=== PATIENT | male | born 1955 | race Caucasian/White ===

== ENCOUNTER 2016-12-10 22:31 | Inpatient (IN) | payer OTHER ==
--- NOTE | 2016-12-10 23:26 | C.PDOC ---
History Of Present Illness Patient, with a past medical history of hypertension and hypercholesterolemia, presents to the ED complaining of abdominal pain that started about 6-7 hours prior to arrival. Patient states the pain is sharp and stabbing. Patient denies fever, chest pain, shortness of breath, nausea, vomiting, or diarrhea. Time Seen by Provider: 12/10/16 23:25 Chief Complaint (Nursing): Abdominal Pain History Per: Patient History/Exam Limitations: no limitations Onset/Duration Of Symptoms: Hrs (6-7 hours prior to arrival) Current Symptoms Are (Timing): Still Present Context: Other Severity: Mild Pain Scale Rating Of: 3 Location Of Pain/Discomfort: Diffuse Radiation Of Pain To:: None Quality Of Discomfort: Sharp, Stabbing, "Pain" Exacerbating Factors: None Alleviating Factors: None Last Bowel Movement: Today Recent travel outside of the [place]: No Additional History Per: Patient Past Medical History Reviewed: Historical Data, Nursing Documentation, Vital Signs Vital Signs: Last Vital Signs Temp 97.8 F 12/11/16 08:08 Pulse 96 H 12/11/16 08:08 Resp 20 12/11/16 08:08 BP 122/76 12/11/16 08:08 Pulse Ox 99 12/11/16 21:11 - Medical History PMH: HTN, Hypercholesterolemia - [facility] Procedures CORONAR ARTERIOGR-2 CATH (09/12/14) LEFT HEART CARDIAC CATH (09/12/14) LT HEART ANGIOCARDIOGRAM (09/12/14) VACCINATION NEC (09/12/14) Family History: States: CAD - Social History Hx Tobacco Use: No Hx Alcohol Use: Yes (occassional) Hx Substance Use: No - Immunization History Hx Tetanus Toxoid Vaccination: No Hx Influenza Vaccination: No Hx Pneumococcal Vaccination: No Review Of Systems Constitutional: Negative for: Fever, Chills Cardiovascular: Negative for: Chest Pain Respiratory: Negative for: Shortness of Breath Gastrointestinal: Positive for: Abdominal Pain. Negative for: Nausea, Vomiting , Diarrhea Physical Exam - Physical Exam Appears: Non-toxic, No Acute Distress Skin: Warm, Dry Head: Atraumatic, Normacephalic Eye(s): bilateral: EOMI Oral Mucosa: Moist Neck: Supple Chest: Symmetrical Cardiovascular: Rhythm Regular Respiratory: No Rales, No Rhonchi, No Wheezing Gastrointestinal/Abdominal: Soft, Tenderness (diffuse), No Guarding, No Rebound Back: No CVA Tenderness Extremity: Bilateral: Atraumatic, Normal Color And Temperature Neurological/Psych: Oriented x3 ED Course And Treatment - Laboratory Results Result Diagrams: 12/11/16 00:46 12/11/16 00:46 ECG: Interpreted By Me, Viewed By Me O2 Sat by Pulse Oximetry: 99 (room air) Pulse Ox Interpretation: Normal - CT Scan/US Abdomen/Pelvis CT Other Rad Studies (CT/US): Read By Radiologist (Jf Nuno MD), Radiology Report Reviewed CT/US Interpretation: EXAM: CT Abdomen and Pelvis With Intravenous Contrast. CLINICAL HISTORY: 61 years old, male; Pain; Abdominal pain; Prior surgery; Surgery type: Right kidney removed; Patient. HX: 16; Additional info: Abd pain. TECHNIQUE: Axial computed tomography images of the abdomen and pelvis with intravenous contrast. This CT. exam was performed using one or more of the following dose reduction techniques: automated. exposure control, adjustment of the mA and/or kV according to patient size, and/or use of iterative. reconstruction technique. EXAM DATE/TIME: 12/11/2016 12:30 AM. COMPARISON: No relevant prior studies available. FINDINGS: Lower thorax: No acute findings. ABDOMEN: Liver: Unremarkable. No mass. Gallbladder and bile ducts: Unremarkable. No calcified stones. No ductal dilation. Pancreas: Unremarkable. No mass. No ductal dilation. Spleen: Unremarkable. No splenomegaly. Adrenals: Unremarkable. No mass. Kidneys and ureters: There has been a right nephrectomy. The left kidney appears unremarkable. Stomach and bowel: Colonic diverticula are present although there are no CT findings to suggest. diverticulitis. There is mild dilation of mid small bowel with a maximal diameter of 3 cm. There are air. fluid levels. The distal small bowel and colon are not dilated. There is no volvulus or intussusception. or significant hernia. There is no pneumatosis. Appendix: No findings to suggest acute appendicitis. PELVIS: Bladder: Unremarkable. No mass. Reproductive: Unremarkable as visualized. ABDOMEN and PELVIS: Intraperitoneal space: Unremarkable. No free air. No significant fluid collection. Bones/joints: No acute fracture. No dislocation. Soft tissues: Unremarkable. Vasculature: Unremarkable. No abdominal aortic aneurysm. Lymph nodes: Unremarkable. No enlarged lymph nodes. IMPRESSION: There is mild small bowel dilation suggestive of an ileus versus partial obstruction.Clinical correlation. is advised. Progress Note: Plan: -Abdomen/Pelvis CT. -EKG. -Labs. -Morphine, Pepcid, Zofran, IV fluids Disposition Discussed With Dr.: Lulu Vera Comment: accepted the pt on her service and took over the care at 3:14 AM Doctor Will See Patient In The: Hospital Counseled Patient/Family Regarding: Studies Performed, Diagnosis - Disposition Disposition: HOSPITALIZED Disposition Time: 23:25 Condition: FAIR - POA Present On Arrival: Poor Glycemic Control - Clinical Impression Clinical Impression: Ileus, Abdominal pain, Nausea - Scribe Statement The provider has reviewed the documentation as recorded by the Scribe Kathia Shah Provider Attestation: All medical record entries made by the Scribe were at my direction and personally dictated by me. I have reviewed the chart and agree that the record accurately reflects my personal performance of the history, physical exam, medical decision making, and the department course for this patient. I have also personally directed, reviewed, and agree with the discharge instructions and disposition. Decision To Admit - Pt Status Changed To: Hospital Disposition Of: Inpatient - Admit Certification Admit to Inpatient:: After my assessment, the patient will require hospitalization for at least two midnights. This is because of the severity of symptoms shown, intensity of services needed, and/or the medical risk in this patient being treated as an outpatient. - InPatient: Physician Admission Certification:: After my assessment, the patient will require hospitalization for at least two midnights. This is because of the severity of symptoms shown, intensity of services needed, and/or the medical risk in this patient being treated as an outpatient. - . Bed Request Type: Regular Admitting Physician: Lulu Vera Patient Diagnosis: Abdominal pain, Ileus, Nausea
[2016-12-11] MEDS ORDERED: Sodium Chloride 0.9% 1,000 ML IV ONE (00:29)
[2016-12-11] MEDS ORDERED: Morphine 4 MG/ML VIAL ONE (00:45)
[2016-12-11] MEDS ORDERED: Sodium Chloride 0.9% 1,000 ML ONE (00:46)
[2016-12-11 00:53] LABS: BASO % 0.1 % (0.0-2.0); EOS % 0.3 % (0.0-4.0); HEMATOCRIT 47.2 % (35.0-51.0); LYMPH # 1.2 K/uL (1.0-4.3); LYMPH % 13.9 % (20.0-40.0); MEAN CELL VOLUME 90.3 fL (80.0-94.0); MEAN CORPUSCULAR HEMOGLOBIN 30.4 pg (27.0-31.0); MEAN CORPUSCULAR HGB CONC 33.7 g/dL (33.0-37.0); MEAN PLATELET VOLUME 8.4 fL (7.2-11.7); MONO # 0.6 K/uL (0.0-0.8); MONO % 7.3 % (0.0-10.0); RED CELL DISTRIBUTION WIDTH 12.9 % (11.5-14.5); WHITE BLOOD COUNT 8.6 K/uL (4.8-10.8)
[2016-12-11 01:04] LABS: CHLORIDE 98 mmol/L (98-107)
[2016-12-11 01:05] LABS: POTASSIUM 4.8 mmol/L (3.6-5.2); SODIUM 139 mmol/L (132-148)
[2016-12-11 01:07] LABS: ALB/GLOB RATIO 1.3 (1.0-2.1); ALKALINE PHOSPHATASE 67 U/L (38-126); AST/SGOT 32 U/L (17-59); BILIRUBIN,TOTAL 0.8 mg/dL (0.2-1.3); BLOOD UREA NITROGEN 21 mg/dL (9-20); CARBON DIOXIDE 28 mmol/L (22-30); GFR AFRICAN-AMERICAN > 60; TOTAL PROTEIN 8.6 g/dL (6.3-8.3)
[2016-12-11 01:08] LABS: ALT/SGPT 27 U/L (21-72); CALCIUM 9.8 mg/dl (8.6-10.4); GLUCOSE,RANDOM 126 mg/dL (75-110)
[2016-12-11 01:13] LABS: GRANULAR CAST 5 /lpf (0-1); RBC URINE 2 /hpf (0-3); URINE BILIRUBIN NEGATIVE (NEGATIVE); URINE BLOOD NEGATIVE (NEGATIVE); URINE COLOR Yellow (YELLOW); URINE GLUCOSE (UA) NORMAL (Normal); URINE KETONE 1+ mg/dL (NEGATIVE); URINE LEUKOCYTE ESTERASE NEG Leu/uL (Negative); URINE PROTEIN 1+ mg/dL (NEGATIVE); URINE UROBILINOGEN NORMAL mg/dL (0.2-1.0); WBC URINE 1 /hpf (0-5)
[2016-12-11] MEDS ORDERED: Iodixanol 320 MG/ML 100 ML BOTTLE IV ONE (01:32)
[2016-12-11] MEDS ORDERED: HYDROmorphone 0.5 mg/0.5 ml ISec IVP PRN ×2 (05:00→22:24)
[2016-12-11] MEDS ORDERED: HYDROmorphone 0.5 mg/0.5 ml ISec ONE (05:15)
[2016-12-11 08:09] VITALS: RESP 20
--- NOTE | 2016-12-11 08:17 | CP.PCM.CON ---
<Sergio Teague - Last Filed: 12/11/16 08:35> History of Present Illness - History of Present Illness History of Present Illness: General Surgery Consult: Dr. Fung 61M w/ PMHx of HTN, PAD, presents to the ED w/ complaints of abdominal pain. Patient reports pain began yesterday (12/10) after having had a meal of fried plantains around 1PM. Patient states he experienced generalized abdominal pain and distension. He experienced three bouts of emesis, non-bloody. Patient reports his pain did not improve and around 9 PM decided to come to hospital. Patient states this is the first time he has experienced this type of pain. He reports he is s/p right nephrectomy which was done 10 months ago. Currently patient states his distention has improved and he is no longer experiencing abdominal pain. Patient denies fever/chills, diarrhea, dysuria. Patient states his last BM was yesterday afternoon. He has not passed flatus since then. PMHx: as stated above PSurgHx: right nephrectomy, PCI RCA Allergies: NKDA Review of Systems - Review of Systems Review of Systems: 12 pt ROS carried out, unremarkable; except as stated in HPI Past Patient History - Infectious Disease Hx of Infectious Diseases: None - Past Medical History & Family History Past Medical History?: Yes - Past Social History Smoking Status: Never Smoked - CARDIAC Hx Hypercholesterolemia: Yes Hx Hypertension: Yes - PULMONARY Hx Asthma: No - NEUROLOGICAL Hx Transient Ischemic Attacks (TIA): No - HEENT Hx HEENT Problems: No - RENAL Hx Chronic Kidney Disease: No - ENDOCRINE/METABOLIC Hx Endocrine Disorders: No - HEMATOLOGICAL/ONCOLOGICAL Hx Blood Disorders: No - INTEGUMENTARY Hx Dermatological Problems: No - MUSCULOSKELETAL/RHEUMATOLOGICAL Hx Musculoskeletal Disorders: No Hx Falls: No - GASTROINTESTINAL Hx Gastrointestinal Disorders: No - GENITOURINARY/GYNECOLOGICAL Hx Genitourinary Disorders: No - PSYCHIATRIC Hx Substance Use: No - SURGICAL HISTORY Hx Surgeries: No Other/Comment: Right Kidney Removal January 2016 - ANESTHESIA Hx Anesthesia: Yes Hx Anesthesia Reactions: No Hx Malignant Hyperthermia: No Has any member of the family had a problem w/ anesthesia?: No Meds Allergies/Adverse Reactions: Allergies Allergy/AdvReac Type Severity Reaction Status Date / Time No Known Allergies Allergy Verified 12/10/16 22:56 Physical Exam - Constitutional Appears: No Acute Distress - Head Exam Head Exam: NORMOCEPHALIC - Eye Exam Eye Exam: Normal appearance - ENT Exam ENT Exam: Mucous Membranes Moist - Respiratory Exam Respiratory Exam: NORMAL BREATHING PATTERN - Cardiovascular Exam Cardiovascular Exam: +S1, +S2 - GI/Abdominal Exam GI & Abdominal Exam: Distended, Soft. absent: Firm, Guarding - Neurological Exam Neurological exam: Alert, Oriented x3 - Psychiatric Exam Psychiatric exam: Normal Mood - Skin Skin Exam: Normal Color, Warm Results - Vital Signs Recent Vital Signs: Last Vital Signs Temp 97.8 F 12/11/16 08:08 Pulse 96 H 12/11/16 08:08 Resp 20 12/11/16 08:08 BP 122/76 12/11/16 08:08 Pulse Ox 96 12/11/16 08:08 - Labs Result Diagrams: 12/11/16 00:46 12/11/16 00:46 - Imaging and Cardiology CT scan - abdomen Status: Image reviewed by me, Report reviewed by me Assessment & Plan - Assessment and Plan (Free Text) Assessment: 61M w/ generalized abdominal pain likely 2/2 pSBO -NPO -IVF -Analgesic/Anti-emetics -Recommend NGT if pt distension worsens or if pt has bout of emesis -DVT/GI ppx -Futher recs per Dr. Fung <Zach Fung - Last Filed: 12/12/16 20:09> Meds - Medications Medications: Current Medications Aspirin (Ecotrin) 81 mg PO DAILY [facility] Last Admin: 12/12/16 13:09 Dose: 81 mg Hydromorphone HCl (Dilaudid) 0.25 mg IVP Q6H PRN PRN Reason: Pain, moderate (4-7) Sodium Chloride (Sodium Chloride 0.9%) 1,000 mls @ 75 mls/hr IV .[id number] [facility] Last Admin: 12/12/16 17:57 Dose: 75 mls/hr Metoprolol Tartrate (Lopressor) 50 mg PO BID [facility] Last Admin: 12/12/16 17:58 Dose: 50 mg Ondansetron HCl (Zofran Inj) 4 mg IVP Q8H PRN PRN Reason: Nausea/Vomiting Pantoprazole Sodium (Protonix Inj) 40 mg IVP DAILY [facility] Last Admin: 12/12/16 13:08 Dose: 40 mg Rosuvastatin Calcium (Crestor) 10 mg PO HS [facility] Last Admin: 12/11/16 21:18 Dose: 10 mg Results - Vital Signs Recent Vital Signs: Last Vital Signs Temp 98 F 12/12/16 08:10 Pulse 66 12/12/16 08:10 Resp 20 12/12/16 08:10 BP 145/71 12/12/16 08:10 Pulse Ox 97 12/12/16 08:10 - Labs Result Diagrams: 12/11/16 00:46 12/11/16 00:46 Attending/Attestation - Attestation I have personally seen and examined this patient.: Yes I have fully participated in the care of the patient.: Yes I have reviewed all pertinent clinical information: Yes Notes (Text): 12/12/16 20:09 Pt was seen and examined at bedside on 12/11/16 Agree with above note and assessment. Pt with PSBO due to post op adhesions Fleet Enema AXR NPO Plan d.w pt in detail.
--- NOTE | 2016-12-11 09:04 | CP.PCM.CON ---
<Larry Shen - Last Filed: 12/11/16 09:01> History of Present Illness - History of Present Illness History of Present Illness: PGY4 GI Fellow Consult Note Patient is a 61yo male with PMHx significant for CAD, HTN, dyslipidemia, right nephrectomy who presented to the ED with one day of abdominal pain. Patient states that yesterday he suddenly developed diffuse abdominal bloating and cramping discomfort at approximately 3PM. He was able to pass one normal, formed BM but remained uncomfortable afterwards. He developed nausea and vomiting 2 hours after this and given persistence of pain, he came to the ED for further evaluation. Prior to this episode yesterday, he denies any discomfort whatsoever. He denies any recent travel, antibiotic use or sick contacts at home. Diet has been unremarkable recently and he has never had symptoms like this in the past. Currently, symptoms have improved and he is again passing flatus but has not had a BM today. PMHx: See HPI PSHx: PCI with 2 stents placed FHx: Mother/Father - CAD Social: Denies tobacco, EtOH or illicit drug use Endo: Denies prior endoscopic evaluation Review of Systems - Constitutional Constitutional: absent: Anorexia, Chills, Fever - EENT Eyes: absent: Change in Vision Nose/Mouth/Throat: absent: Sore Throat - Cardiovascular Cardiovascular: absent: Chest Pain, Dyspnea, Edema - Respiratory Respiratory: absent: Cough, Dyspnea, Excessive Mucous Production - Gastrointestinal Gastrointestinal: Abdominal Pain, Bloating, Cramping, Nausea, Vomiting. absent : Constipation, Diarrhea, Dyspepsia, Dysphagia, Hematemesis, Hematochezia, Melena - Genitourinary Genitourinary: absent: Dysuria, Urinary Frequency, Urinary Urgency - Musculoskeletal Musculoskeletal: absent: Back Pain, Neck Pain - Integumentary Integumentary: absent: New Lesions, Rash - Neurological Neurological: absent: Dizziness, Numbness, Focal Weakness - Psychiatric Psychiatric: absent: Anxiety, Depression - Endocrine Endocrine: absent: Polydipsia, Polyphagia, Polyuria - Hematologic/Lymphatic Hematologic: absent: Easy Bleeding, Easy Bruising, Lymphadenopathy Past Patient History - Infectious Disease Hx of Infectious Diseases: None - Past Medical History & Family History Past Medical History?: Yes - Past Social History Smoking Status: Never Smoked - CARDIAC Hx Hypercholesterolemia: Yes Hx Hypertension: Yes - PULMONARY Hx Asthma: No - NEUROLOGICAL Hx Transient Ischemic Attacks (TIA): No - HEENT Hx HEENT Problems: No - RENAL Hx Chronic Kidney Disease: No - ENDOCRINE/METABOLIC Hx Endocrine Disorders: No - HEMATOLOGICAL/ONCOLOGICAL Hx Blood Disorders: No - INTEGUMENTARY Hx Dermatological Problems: No - MUSCULOSKELETAL/RHEUMATOLOGICAL Hx Musculoskeletal Disorders: No Hx Falls: No - GASTROINTESTINAL Hx Gastrointestinal Disorders: No - GENITOURINARY/GYNECOLOGICAL Hx Genitourinary Disorders: No - PSYCHIATRIC Hx Substance Use: No - SURGICAL HISTORY Hx Surgeries: No Other/Comment: Right Kidney Removal January 2016 - ANESTHESIA Hx Anesthesia: Yes Hx Anesthesia Reactions: No Hx Malignant Hyperthermia: No Has any member of the family had a problem w/ anesthesia?: No Meds Allergies/Adverse Reactions: Allergies Allergy/AdvReac Type Severity Reaction Status Date / Time No Known Allergies Allergy Verified 12/10/16 22:56 - Medications Medications: Current Medications Aspirin (Ecotrin) 81 mg PO DAILY [facility] Hydromorphone HCl (Dilaudid) 0.5 mg IVP Q6H PRN PRN Reason: Pain, moderate (4-7) Sodium Chloride (Sodium Chloride 0.9%) 1,000 mls @ 125 mls/hr IV .Q8H [facility] Metoprolol Tartrate (Lopressor) 50 mg PO BID [facility] Ondansetron HCl (Zofran Inj) 4 mg IVP Q8H PRN PRN Reason: Nausea/Vomiting Pantoprazole Sodium (Protonix Inj) 40 mg IVP DAILY [facility] Rosuvastatin Calcium (Crestor) 10 mg PO HS [facility] Physical Exam - Constitutional Appears: Non-toxic, No Acute Distress - Eye Exam Eye Exam: EOMI, PERRL - ENT Exam ENT Exam: Mucous Membranes Moist - Respiratory Exam Respiratory Exam: Clear to Auscultation Bilateral. absent: Rales, Rhonchi, Wheezes - Cardiovascular Exam Cardiovascular Exam: RRR, +S1, +S2 - GI/Abdominal Exam GI & Abdominal Exam: Diminished Bowel Sounds, Soft. absent: Distended, Firm, Guarding, Organomegaly, Rigid, Tenderness - Extremities Exam Extremities exam: Positive for: normal inspection. Negative for: pedal edema - Neurological Exam Neurological exam: Alert, Oriented x3 - Psychiatric Exam Psychiatric exam: Normal Affect, Normal Mood - Skin Skin Exam: Dry, Warm Results - Vital Signs Recent Vital Signs: Last Vital Signs Temp 97.8 F 12/11/16 08:08 Pulse 96 H 12/11/16 08:08 Resp 20 12/11/16 08:08 BP 122/76 12/11/16 08:08 Pulse Ox 96 12/11/16 08:08 - Labs Result Diagrams: 12/11/16 00:46 12/11/16 00:46 Assessment & Plan - Assessment and Plan (Free Text) Assessment: Patient is a 61yo male with PMHx significant for CAD, HTN, dyslipidemia, right nephrectomy who presented to the ED with one day of abdominal pain. -Abdominal pain; concern for ileus vs small bowel obstruction (mid-SBO) -CAD -H/O Right nephrectomy -HTN -Dyslipidemia Plan: -Pt passing flatus today, less pain -Advance to liquid diet, continue to advance as tolerated -CT A/P reviewed; evidence of obstructive process/vs ileus originating in the mid-small bowel -Conservative management -General surgical service following -Patient will benefit from outpatient follow up and screening colonoscopy - Date & Time Date: 12/11/16 Time: 08:00 <Carroll Saul - Last Filed: 12/11/16 09:24> Meds - Medications Medications: Current Medications Aspirin (Ecotrin) 81 mg PO DAILY [facility] Hydromorphone HCl (Dilaudid) 0.5 mg IVP Q6H PRN PRN Reason: Pain, moderate (4-7) Sodium Chloride (Sodium Chloride 0.9%) 1,000 mls @ 125 mls/hr IV .Q8H [facility] Metoprolol Tartrate (Lopressor) 50 mg PO BID [facility] Ondansetron HCl (Zofran Inj) 4 mg IVP Q8H PRN PRN Reason: Nausea/Vomiting Pantoprazole Sodium (Protonix Inj) 40 mg IVP DAILY [facility] Rosuvastatin Calcium (Crestor) 10 mg PO HS [facility] Results - Vital Signs Recent Vital Signs: Last Vital Signs Temp 97.8 F 12/11/16 08:08 Pulse 96 H 12/11/16 08:08 Resp 20 12/11/16 08:08 BP 122/76 12/11/16 08:08 Pulse Ox 96 12/11/16 08:08 - Labs Result Diagrams: 12/11/16 00:46 12/11/16 00:46 Attending/Attestation - Attestation I have personally seen and examined this patient.: Yes I have fully participated in the care of the patient.: Yes I have reviewed all pertinent clinical information: Yes Notes (Text): 12/11/16 09:16 I have seen and examined patient with GI fellow. Agree with above documentation with the following additions. In brief, this is a 61 year old male with history of HTN, CAD s/p stent in 2015, right nephrectomy who presents with sudden onset abdominal pain which began at 3 pm yesterday. Prior to this he was in usual state of health. He suddenly developed diffuse generalized 7/ 10 intensity abdominal pain which was non-radiating and associated with nausea/ vomiting. He was able to have one formed bowel movement but remained uncomfortable and came to hospital. He denies associated fever/chills, weight loss, rectal bleeding, sick contacts, travel history, or change in bowel habits. He denies any prior endoscopic evaluation. Since arrival to hospital he is passing gas, though has not had any repeat bowel movements. HTN CAD s/p stent s/p R nephrectomy - reason unclear Sudden onset abdominal pain CT imaging reviewed by me showing dilated small bowel loops suggestive of ileus / partial SBO - Clear liquid diet as tolerated - Continue with IVF hydration, conservative management - Surgical consultation has been requested by PMD, follow up recommendations - No acute planned GI intervention, will continue to monitor patient clinical course. He would benefit from elective outpatient colonoscopy evaluation following resolution of acute symptoms.
--- NOTE | 2016-12-11 09:35 | CT ---
PROCEDURE: CT Abdomen and Pelvis with intravenous contrast HISTORY: Abdominal pain COMPARISON: None. TECHNIQUE: Multiple contiguous axial images were performed through the abdomen and pelvis with intravenous contrast. Subsequently, sagittal and coronal reformatted images were obtained. Radiation dose: Total exam DLP = eight hundred eighteen mGy-cm. This CT exam was performed using one or more of the following dose reduction techniques: Automated exposure control, adjustment of the mA and/or kV according to patient size, and/or use of iterative reconstruction technique. FINDINGS: LOWER THORAX: Atelectasis at the lung bases. More focal nodular consolidation in the inferior right middle lobe. LIVER: Low-attenuation lesion at the dome of the right hepatic lobe measuring 2.1 centimeters demonstrating a Hounsfield unit attenuation of 31, indeterminate. More inferiorly in the right hepatic lobe there is an additional 1 centimeter low-attenuation lesion, too small to adequately characterize. More inferiorly there is a 4 millimeter hypodensity in the right hepatic lobe also too small to adequately characterize. Additional punctate hypodensities, too small to characterize. Correlation with multiphasic CT or MR may be helpful for further characterization. GALLBLADDER AND BILE DUCTS: Unremarkable. PANCREAS: Unremarkable. No gross lesion or ductal dilatation. SPLEEN: Unremarkable. ADRENALS: Unremarkable. No mass. KIDNEYS AND URETERS: Prior right nephrectomy. Small 9 millimeter hypodensity in the lower pole of the left kidney, too small to adequately characterize. VASCULATURE: Unremarkable. No aortic aneurysm. BOWEL: Colonic diverticuli. Mild dilatation of mid small bowel loops with a maximal diameter 3 centimeters. Air-fluid levels. Distal small bowel and colon are not dilated. APPENDIX: Not well visualized. PERITONEUM: Unremarkable. No free fluid. No free air. LYMPH NODES: Unremarkable. No enlarged lymph nodes. BLADDER: Unremarkable. REPRODUCTIVE: Unremarkable. BONES: No acute fracture. OTHER FINDINGS: None. IMPRESSION: Mild small bowel dilatation suggestive for ileus versus partial small bowel obstruction. Clinical correlation. Low-attenuation lesion at the dome of the right hepatic lobe measuring 2.1 centimeters demonstrating a Hounsfield unit attenuation of 31, indeterminate. More inferiorly in the right hepatic lobe there is an additional 1 centimeter low-attenuation lesion, too small to adequately characterize. More inferiorly there is a 4 millimeter hypodensity in the right hepatic lobe also too small to adequately characterize. Additional punctate hypodensities, too small to characterize. Correlation with multiphasic CT or MR may be helpful for further characterization. Additional findings as above. These findings were preliminarily reported at 3:05 a.m. on 12/11/[address] Ana Nuno from [facility].
[2016-12-11] MEDS: Sodium Chloride 0.9% 1,000 ML IV SCH ×2 (11:16→21:00)
[2016-12-12] MEDS: Sodium Chloride 0.9% 1,000 ML IV SCH ×5 (00:30→17:57)
--- NOTE | 2016-12-12 08:39 | HP ---
CHIEF COMPLAINT: Abdominal pain. HISTORY OF PRESENT ILLNESS: The patient is a 61-year-old male with past medical history of hypertension, hypercholesterolemia. Came in the Emergency Room complaining of abdominal pain that started about 6-7 hours prior to the hospital. The patient states the pain is sharp and stabbing. The patient denies fever, chest pain, shortness of breath. No nausea, vomiting, diarrhea. No fever, no chills. Does not look like toxic. Pain scale was like 3/10. The patient is seen and examined on the bedside. PAST MEDICAL HISTORY: Hypertension, hypercholesterolemia. FAMILY HISTORY: Has coronary artery disease. HABITS: No smoking, alcohol yes occasionally, substance abuse not. ALLERGIES: The patient is not allergic with any medication. HOME MEDICATIONS: Simvastatin, Lopressor, aspirin. CAT scan of abdomen and pelvis done, mild small bowel dilatation suggesting of ileus versus partial small bowel obstruction, low attenuation lesion in the dome of the right hepatic lobe measuring 2.1 cm, demonstrating a Hounsfield unit attenuation of 31. There are multiple lesions in the liver. Correlation with multiphasic CT or MRI may be helpful for further evaluation. The patient has history of hypertension, hypercholesterolemia. The patient is seen by circuit rider, Dr. Carroll Saul. The patient has history of coronary artery disease, dyslipidemia, right nephrectomy. The patient has history of cardiac stents, has ileus or partial small bowel obstruction. Started clear liquid diet as tolerated by the GI. Continue IV hydration, conservative management. Surgical consult also called. No acute planned GI intervention as per Dr. Carroll Saul. According to GI, patient needs colonoscopy evaluation as outpatient after resolution of acute symptoms. Getting analgesic, antiemetic. Gastrointestinal and deep vein thrombosis prophylaxis. Will suggest MRI of the abdomen, attention to liver. Will follow up. Lulu Vera MD cc: [id number] TT: 12/12/2016 08:38:34 en MTDD
--- NOTE | 2016-12-12 11:13 | CP.PCM.PN ---
<Larry Shen - Last Filed: 12/12/16 11:13> Subjective - Date & Time of Evaluation Date of Evaluation: 12/12/16 Time of Evaluation: 06:15 - Subjective Subjective: PGY4 GI Fellow Progress Note Patient seen and examined bedside this morning. The patient was given a fleet enema yesterday and had episode of liquid stool. Seen before eating breakfast and had no discomfort however following liquid diet breakfast, developed lower abdominal cramping and discomfort. No nausea, vomiting, fever, chills. 12 system ROS performed and negative except where stated. Objective - Vital Signs/Intake and Output Vital Signs (last 24 hours): Temp Pulse Resp BP Pulse Ox 98 F 66 20 145/71 97 12/12/16 08:10 12/12/16 08:10 12/12/16 08:10 12/12/16 08:10 12/12/16 08:10 Intake and Output: 12/12/16 12/12/16 06:59 18:59 Intake Total 1999 Balance 1999 - Medications Medications: Current Medications Aspirin (Ecotrin) 81 mg PO DAILY [facility] Last Admin: 12/11/16 11:17 Dose: 81 mg Hydromorphone HCl (Dilaudid) 0.25 mg IVP Q6H PRN PRN Reason: Pain, moderate (4-7) Sodium Chloride (Sodium Chloride 0.9%) 1,000 mls @ 125 mls/hr IV .Q8H [facility] Last Admin: 12/12/16 09:12 Dose: Not Given Metoprolol Tartrate (Lopressor) 50 mg PO BID [facility] Last Admin: 12/11/16 17:16 Dose: 50 mg Ondansetron HCl (Zofran Inj) 4 mg IVP Q8H PRN PRN Reason: Nausea/Vomiting Pantoprazole Sodium (Protonix Inj) 40 mg IVP DAILY [facility] Last Admin: 12/11/16 11:26 Dose: 40 mg Rosuvastatin Calcium (Crestor) 10 mg PO HS [facility] Last Admin: 12/11/16 21:18 Dose: 10 mg - Labs Labs: PT 11.5 SECONDS (9.7-12.2) 12/11/16 00:46 INR 1.0 12/11/16 00:46 APTT 28 SECONDS (21-34) 12/11/16 00:46 - Constitutional Appears: Non-toxic, No Acute Distress - Eye Exam Eye Exam: EOMI, PERRL - ENT Exam ENT Exam: Mucous Membranes Moist - Respiratory Exam Respiratory Exam: Clear to Ausculation Bilateral. absent: Rales, Rhonchi, Wheezes - Cardiovascular Exam Cardiovascular Exam: RRR, +S1, +S2 - GI/Abdominal Exam GI & Abdominal Exam: Soft, Diminished Bowel Sounds. absent: Distended, Firm, Guarding, Rigid, Tenderness, Organomegaly - Extremities Exam Extremities Exam: Normal Inspection. absent: Pedal Edema - Neurological Exam Neurological Exam: Alert, Awake, Oriented x3 - Psychiatric Exam Psychiatric exam: Normal Affect, Normal Mood - Skin Skin Exam: Dry, Warm Assessment and Plan - Assessment and Plan (Free Text) Assessment: Patient is a 61yo male with PMHx significant for CAD, HTN, dyslipidemia, right nephrectomy who presented to the ED with one day of abdominal pain. -Abdominal pain; suspect partial small bowel obstruction (mid-SBO) -CAD -H/O Right nephrectomy -HTN -Dyslipidemia Plan: -Pain following liquid diet for breakfast; slowly advance as tolerated - would maintain liquid diet for now given persistence of pain -Passed small liquid bowel movement with fleet enema yesterday; would not repeat enema -Passing flatus -Continue conservative management with no plan for endoscopic evaluation at this time -General surgical service following, appreciate their input -Patient will benefit from outpatient follow up and screening colonoscopy <Millie Nevarez - Last Filed: 12/12/16 13:29> Objective - Vital Signs/Intake and Output Vital Signs (last 24 hours): Temp Pulse Resp BP Pulse Ox 98 F 66 20 145/71 97 12/12/16 08:10 12/12/16 08:10 12/12/16 08:10 12/12/16 08:10 12/12/16 08:10 Intake and Output: 12/12/16 12/12/16 06:59 18:59 Intake Total 1999 Balance 1999 - Medications Medications: Current Medications Aspirin (Ecotrin) 81 mg PO DAILY [facility] Last Admin: 12/12/16 13:09 Dose: 81 mg Hydromorphone HCl (Dilaudid) 0.25 mg IVP Q6H PRN PRN Reason: Pain, moderate (4-7) Sodium Chloride (Sodium Chloride 0.9%) 1,000 mls @ 75 mls/hr IV .[id number] [facility] Last Admin: 12/12/16 13:09 Dose: Not Given Metoprolol Tartrate (Lopressor) 50 mg PO BID [facility] Last Admin: 12/12/16 13:09 Dose: 50 mg Ondansetron HCl (Zofran Inj) 4 mg IVP Q8H PRN PRN Reason: Nausea/Vomiting Pantoprazole Sodium (Protonix Inj) 40 mg IVP DAILY [facility] Last Admin: 12/12/16 13:08 Dose: 40 mg Rosuvastatin Calcium (Crestor) 10 mg PO HS [facility] Last Admin: 12/11/16 21:18 Dose: 10 mg - Labs Labs: PT 11.5 SECONDS (9.7-12.2) 12/11/16 00:46 INR 1.0 12/11/16 00:46 APTT 28 SECONDS (21-34) 12/11/16 00:46 Attending/Attestation - Attestation I have personally seen and examined this patient.: Yes I have fully participated in the care of the patient.: Yes I have reviewed all pertinent clinical information, including history, physical exam and plan: Yes Notes (Text): Patient seen and examined with GI fellow. Agree with his note as documented above with the following additions/exceptions. This is a 61 year old male with PMHx significant for CAD, HTN, dyslipidemia, right nephrectomy who presented to hospital with abdominal pain due to partial small bowel obstruction. His abdominal pain is improved, although did recur to some degree with clear liquids. No nausea or vomiting. Would continue current management with conservative therapy, pain control as needed. Follow up surgery recommendations. Patient will need elective outpatient colonoscopy. 12/12/16 13:28
--- NOTE | 2016-12-12 12:47 | CP.PCM.PN ---
<Sergio Teague - Last Filed: 12/12/16 13:10> Subjective - Date & Time of Evaluation Date of Evaluation: 12/12/16 Time of Evaluation: 06:50 - Subjective Subjective: Gen Surg: Dr. Fung Patient seen and examined this morning. Patient reports his abdominal pain has improved significantly since admission. Reports passing flatus. Pt has BM after fleet enema was administered. Currently denies n/v, abdominal pain. Tolerating clear liquid diet. Pt requesting diet be advanced. Objective - Vital Signs/Intake and Output Vital Signs (last 24 hours): Temp Pulse Resp BP Pulse Ox 98 F 66 20 145/71 97 12/12/16 08:10 12/12/16 08:10 12/12/16 08:10 12/12/16 08:10 12/12/16 08:10 Intake and Output: 12/12/16 12/12/16 06:59 18:59 Intake Total 1999 Balance 1999 - Medications Medications: Current Medications Aspirin (Ecotrin) 81 mg PO DAILY [facility] Last Admin: 12/11/16 11:17 Dose: 81 mg Hydromorphone HCl (Dilaudid) 0.25 mg IVP Q6H PRN PRN Reason: Pain, moderate (4-7) Sodium Chloride (Sodium Chloride 0.9%) 1,000 mls @ 75 mls/hr IV .[id number] [facility] Metoprolol Tartrate (Lopressor) 50 mg PO BID [facility] Last Admin: 12/11/16 17:16 Dose: 50 mg Ondansetron HCl (Zofran Inj) 4 mg IVP Q8H PRN PRN Reason: Nausea/Vomiting Pantoprazole Sodium (Protonix Inj) 40 mg IVP DAILY [facility] Last Admin: 12/11/16 11:26 Dose: 40 mg Rosuvastatin Calcium (Crestor) 10 mg PO HS [facility] Last Admin: 12/11/16 21:18 Dose: 10 mg - Labs Labs: PT 11.5 SECONDS (9.7-12.2) 12/11/16 00:46 INR 1.0 12/11/16 00:46 APTT 28 SECONDS (21-34) 12/11/16 00:46 - Constitutional Appears: No Acute Distress - Head Exam Head Exam: NORMOCEPHALIC - Eye Exam Eye Exam: Normal appearance Pupil Exam: NORMAL ACCOMODATION - ENT Exam ENT Exam: Mucous Membranes Moist - Respiratory Exam Respiratory Exam: NORMAL BREATHING PATTERN - Cardiovascular Exam Cardiovascular Exam: +S1, +S2 - GI/Abdominal Exam GI & Abdominal Exam: Soft. absent: Distended, Guarding, Rigid, Tenderness, Rebound - Neurological Exam Neurological Exam: Alert, Awake, Oriented x3 - Psychiatric Exam Psychiatric exam: Normal Mood - Skin Skin Exam: Dry, Warm Assessment and Plan - Assessment and Plan (Free Text) Assessment: 61M w pSBO vs. ileus -Advance diet as tolerated -No acute surgical intervention at this present time -Monitor bowel function -F/u MRI results -Dw Dr. Fung <Zach Fung - Last Filed: 12/12/16 20:18> Objective - Vital Signs/Intake and Output Vital Signs (last 24 hours): Temp Pulse Resp BP Pulse Ox 98 F 66 20 145/71 97 12/12/16 08:10 12/12/16 08:10 12/12/16 08:10 12/12/16 08:10 12/12/16 08:10 - Medications Medications: Current Medications Aspirin (Ecotrin) 81 mg PO DAILY [facility] Last Admin: 12/12/16 13:09 Dose: 81 mg Hydromorphone HCl (Dilaudid) 0.25 mg IVP Q6H PRN PRN Reason: Pain, moderate (4-7) Sodium Chloride (Sodium Chloride 0.9%) 1,000 mls @ 75 mls/hr IV .[id number] [facility] Last Admin: 12/12/16 17:57 Dose: 75 mls/hr Metoprolol Tartrate (Lopressor) 50 mg PO BID [facility] Last Admin: 12/12/16 17:58 Dose: 50 mg Ondansetron HCl (Zofran Inj) 4 mg IVP Q8H PRN PRN Reason: Nausea/Vomiting Pantoprazole Sodium (Protonix Inj) 40 mg IVP DAILY [facility] Last Admin: 12/12/16 13:08 Dose: 40 mg Rosuvastatin Calcium (Crestor) 10 mg PO HS [facility] Last Admin: 12/11/16 21:18 Dose: 10 mg - Labs Labs: PT 11.5 SECONDS (9.7-12.2) 12/11/16 00:46 INR 1.0 12/11/16 00:46 APTT 28 SECONDS (21-34) 12/11/16 00:46 Attending/Attestation - Attestation I have personally seen and examined this patient.: Yes I have fully participated in the care of the patient.: Yes I have reviewed all pertinent clinical information, including history, physical exam and plan: Yes Notes (Text): 12/12/16 20:18 Pt was seen and examined at bedside on 12/12/16 Agree with above note and assessment. Pt with PSBO due to post op adhesions Clinically improving C/w Enema Plan d.w pt in detail.
--- NOTE | 2016-12-12 14:26 | MRI ---
MRI abdomen without IV contrast Indication: Abdominal pain. Kidney removed 10 months ago. Denies trauma. Technique: Multiplanar, multi sequence magnetic resonance images of the abdomen were obtained without the administration of intravenous gadolinium. A total of 436 images submitted for review Comparison: CT abdomen and pelvis performed 12/11/16. Findings: 3 T2 hyperintense foci which are too small to characterize within the right hepatic lobe measuring approximately 9 mm, 12 mm, and 5 mm. Ill defined 15 mm hepatic done T1 hypointense/T2 hyperintense focus. No intrahepatic biliary ductal dilatation appreciated. The noncontrast included portions spleen, pancreas, adrenal glands, and gallbladder appear unremarkable. The right kidney is absent. The left kidney appears unremarkable. No bulky adenopathy appreciated. Limited views of the inferior thorax appear unremarkable. 13 mm T2 hyperintense foci L1 and L2. Impression: Indeterminate T2 hyperintense foci as above. These lesions cannot be further characterized in the absence of IV contrast. Multi phase MRI or CT recommended for further characterization if indicated. The right kidney is absent, by history the patient is status post nephrectomy. T2 hyperintense foci involving L1 and L2 vertebral bodies, possibly hemangiomas ; incompletely characterized on a noncontrast study.
[2016-12-13] MEDS: Sodium Chloride 0.9% 1,000 ML IV SCH ×3 (04:20→21:08)
--- NOTE | 2016-12-13 10:11 | PN ---
DATE: 12/12/2016 SUBJECTIVE: The patient is seen and examined on the bedside on 12/12/16. Abdominal pain is a little better. No hematuria, no hematochezia. Abdominal pain is improving significantly since admission, p assing flatus. The patient had refused enema. Denies nausea, vomiting, tolerating clear liquid diet . The patient requiring diet advanced as per surgical team. No fever, no chills. No headache. No dyspnea. PHYSICAL EXAMINATION: VITAL SIGNS: Temperature 98, pulse 66, respiratory rate 20, blood pressure 144/71, pulse oximetry 97 . HEENT: Head normocephalic, atraumatic. Eyes: PERRLA. Extraocular muscles intact. Conjunctivae pi nk. Eyelids unremarkable. Nose patent. Mucous membranes moist. NECK: Supple. No carotid bruit. No JVD or thyromegaly. CHEST: Bilaterally symmetrical. HEART: S1, S2 positive. LUNGS: Clear to auscultation. ABDOMEN: Soft. Tender on deep palpation. No organomegaly. EXTREMITIES: No edema, no cyanosis. NEUROLOGIC: The patient is awake, alert, moving all 4 extremities. No focal deficit. MEDICATIONS: Ecotrin, Dilaudid, NS, Lopressor, Zofran, Protonix, Crestor. LABORATORY DATA: We do not have recent labs today, but I reviewed old labs. ASSESSMENT AND PLAN: The patient is a 61-year-old male came with abdominal pain. MRI was done, show s right kidney is absent. By history, the patient is status post nephrectomy. L1-L2 vertebrae karla s have foci, possibly hemangiomas. Hyperintense foci at the T2 according to radiologist, Dr. Martin, cannot be characterized in the absence of IV contrast. Multiphase MRI or CT recommended for further characteristic if indicated. Seen by Dr. Fung, surgeon, and gastroenterology, Dr. Hodges. The patient was given Fleet enema, had episode of liquid stool. No discomfort after food. No nausea, v omiting. The patient has history of coronary artery disease, hypertension, dyslipidemia. Abdominal pain is coming and going. According to gastrointestinal, current management will be conservative the rapy. Pain control as needed. Follow up with surgery. May need elective outpatient colonoscopy. T he patient with partial small bowel obstruction due to postoperative adhesions, clinically improving. If the patient is improving, does not need any surgical intervention. Continue present treatment, out of bed, physical therapy. We will follow up. Lulu Vera MD cc: [id number] TT: 12/13/2016 10:11:26 Confirmation # [id number] Dictation # [id number]
--- NOTE | 2016-12-13 16:20 | MRI ---
PROCEDURE: MR THORACIC SPINE WITHOUT CONTRAST HISTORY: ab. ct COMPARISON: Comparison is made to the previous CT of the abdomen and pelvis dated 12/11/2016 MRI of the abdomen dated 12/12/2016. TECHNIQUE: Multiecho multiplanar sequences were performed through the thoracic spine without the use of intravenous contrast. FINDINGS: ALIGNMENT: Normal thoracic spinal alignment. Normal thoracic kyphosis. VERTEBRA: There is with defined 11.9 millimeter hyperintense T2 and T1 signal and hypointense stair signal lesions seen at T9 vertebral body. There is a well defined 16 x 16.5 millimeter lesion at the T11 and 15.5 x 15.7 millimeter lesion at T12. The signal characteristic of these lesions are suggestive but nonspecific for benign hemangioma. No evidence of destructive bony lesion. MARROW: Marrow signal unremarkable. PARASPINAL SOFT TISSUES: Unremarkable. CORD: Unremarkable thoracic cord. No volume loss, signal abnormality or syrinx. DISCS: No disc herniation, spinal canal stenosis, or neuroforaminal narrowing. OTHER FINDINGS: None. IMPRESSION: Three bony lesions seen at T9, T11 and T12 with signal characteristic suggestive but nonspecific for hemangiomas. If clinically warranted follow-up reassessment after 3 months may be obtained. No evidence of destructive bony lesion. No evidence of significant spinal or neural foraminal narrowing.
--- NOTE | 2016-12-13 17:19 | MRI ---
PROCEDURE: MR LUMBAR SPINE WITHOUT CONTRAST HISTORY: ab. ct COMPARISON: None available. TECHNIQUE: Multiecho multiplanar sequences were performed through the lumbar spine without the use of intravenous contrast. FINDINGS: Normal lumbar lordosis. Vertebral body heights are preserved. Marrow signal unremarkable. Conus medullaris unremarkable at the level of T12 Paraspinal soft tissues are unremarkable. T12-L1: No disc herniation, spinal canal stenosis or neural foraminal narrowing. L1-2: No disc herniation, spinal canal stenosis or neural foraminal narrowing. L2-3: No disc herniation, spinal canal stenosis or neural foraminal narrowing. L3-4: Mild asymmetric disc bulge to the left with associated radial tear. L4-5: Mild symmetrical disc bulge with minimal desiccation of the disc material. Mild facet arthropathy. No stenosis L5-S1: No disc herniation, spinal canal stenosis or neural foraminal narrowing. OTHER FINDINGS: None. IMPRESSION: Mild degenerative changes at L3-4 and L4-5 without stenosis
--- NOTE | 2016-12-13 17:38 | CP.PCM.PN ---
<Marbella Reyna - Last Filed: 12/13/16 17:34> Subjective - Date & Time of Evaluation Date of Evaluation: 12/13/16 Time of Evaluation: 10:30 - Subjective Subjective: General Surgery Dr. Fung Pt S&E @bedside. no complaints. denies N/V, F/C. (+) BM. tolerating diet. Objective - Vital Signs/Intake and Output Vital Signs (last 24 hours): Temp Pulse Resp BP Pulse Ox 97.4 F L 60 20 145/67 97 12/13/16 08:21 12/13/16 08:21 12/13/16 08:21 12/13/16 08:21 12/13/16 08:21 Intake and Output: 12/13/16 12/13/16 06:59 18:59 Intake Total 1000 Balance 1000 - Medications Medications: Current Medications Aspirin (Ecotrin) 81 mg PO DAILY [facility] Last Admin: 12/13/16 09:13 Dose: 81 mg Hydromorphone HCl (Dilaudid) 0.25 mg IVP Q6H PRN PRN Reason: Pain, moderate (4-7) Sodium Chloride (Sodium Chloride 0.9%) 1,000 mls @ 75 mls/hr IV .[id number] [facility] Last Admin: 12/13/16 16:30 Dose: Not Given Metoprolol Tartrate (Lopressor) 50 mg PO BID [facility] Last Admin: 12/13/16 17:19 Dose: 50 mg Ondansetron HCl (Zofran Inj) 4 mg IVP Q8H PRN PRN Reason: Nausea/Vomiting Pantoprazole Sodium (Protonix Inj) 40 mg IVP DAILY [facility] Last Admin: 12/13/16 09:14 Dose: 40 mg Rosuvastatin Calcium (Crestor) 10 mg PO HS [facility] Last Admin: 12/12/16 21:13 Dose: 10 mg - Labs Labs: PT 11.5 SECONDS (9.7-12.2) 12/11/16 00:46 INR 1.0 12/11/16 00:46 APTT 28 SECONDS (21-34) 12/11/16 00:46 - Constitutional Appears: Non-toxic, No Acute Distress - Head Exam Head Exam: NORMAL INSPECTION - Eye Exam Eye Exam: Normal appearance - ENT Exam ENT Exam: Mucous Membranes Moist - Respiratory Exam Respiratory Exam: NORMAL BREATHING PATTERN. absent: Accessory Muscle Use, Respiratory Distress - Cardiovascular Exam Cardiovascular Exam: REGULAR RHYTHM. absent: Bradycardia, Tachycardia - GI/Abdominal Exam GI & Abdominal Exam: Soft, Tenderness. absent: Distended, Firm, Guarding, Rigid , Rebound - Neurological Exam Neurological Exam: Alert, Awake, Oriented x3 - Psychiatric Exam Psychiatric exam: Normal Affect, Normal Mood - Skin Skin Exam: Dry, Intact, Normal Color, Warm Assessment and Plan - Assessment and Plan (Free Text) Assessment: 61 y/o M w/ pSBO - resolved - pt having BMs - advance diet as tolerated - cleared for discharge from surgical standpoint - please reconsult if needed Pt discussed w/ Dr. Antonieta Reyna DO PGY1 <Zach Fung - Last Filed: 12/14/16 19:58> Objective - Vital Signs/Intake and Output Vital Signs (last 24 hours): Temp Pulse Resp BP Pulse Ox 97.9 F 62 20 157/97 H 97 12/14/16 08:04 12/14/16 08:04 12/14/16 08:04 12/14/16 08:04 12/14/16 08:04 Intake and Output: 12/14/16 12/15/16 18:59 06:59 Intake Total 500 Balance 500 - Labs Labs: PT 11.5 SECONDS (9.7-12.2) 12/11/16 00:46 INR 1.0 12/11/16 00:46 APTT 28 SECONDS (21-34) 12/11/16 00:46 Attending/Attestation - Attestation I have personally seen and examined this patient.: Yes I have fully participated in the care of the patient.: Yes I have reviewed all pertinent clinical information, including history, physical exam and plan: Yes Notes (Text): 12/14/16 19:58 Pt was seen and examined at bedside on 12/13/16 Agree with above note and assessment Pt is resolved PSBO Reg diet F.U as out pt.
--- NOTE | 2016-12-14 00:01 | PN ---
DATE: 12/13/2016 SUBJECTIVE: The patient seen and examined on the bedside, looks comfortable. Tolerated food very well. No nausea, vomiting, diarrhea. No headache, no dizziness. Abdominal pain is better. No shortness of breath. No fever, no chills. PHYSICAL EXAMINATION: VITAL SIGNS: Temperature 98.1, pulse 59, blood pressure 147/70, respiratory rate 20. HEENT: Head normocephalic, atraumatic. Eyes PERRLA. Extraocular muscles intact. Conjunctivae clear. Eyelids unremarkable. Nose patent. Mucous membranes moist. NECK: Supple. No carotid bruit, JVD or thyromegaly. CHEST: Bilaterally symmetrical. HEART: S1, S2 positive. LUNGS: Clear to auscultation. ABDOMEN: Soft. Bowel sounds present. No organomegaly. EXTREMITIES: No edema, no cyanosis. NEUROLOGIC: The patient is awake, alert, moving all 4 extremities. No focal deficits. MEDICATIONS: Crestor, Dilaudid, Ecotrin, Lopressor, Protonix, NS, Zofran. LABORATORY DATA: We do not have recent labs today, but I reviewed old labs. ASSESSMENT AND PLAN: The patient is a 61-year-old male who came with partially small bowel obstruction, resolved. The patient is having bowel movements. Advance diet as tolerated. Cleared for discharge from surgical point of view. Seen by the gastrointestinal also. The patient went for thoracic MRI, showed 3 bony lesions seen in T9, T11, T12 with spinal , suggestive but nonspecific for hemangioma . Followup reassessment after 3 months, no evidence of destructive bone lesion. No evidence of spinal , spinal or neural foraminal narrowing. The patient went for lumbar spine MRI also, showed mild degenerative changes at L3-L4 and L4-L5, without stenosis. Abdominal MRI is also done, reviewed by me. The patient is tolerating food very well. We will continue Crestor for hypercholesterolemia. We will discontinue Dilaudid because right now patient does not have any pain. Getting aspirin. Does need but given once. Getting metoprolol for hypercholesterolemia. Protonix for gastrointestinal prophylaxis. Getting normal saline. Because patient is drinking fine, we will stop the normal saline. Now, patient is not nauseous, we will start the Zofran. If tomorrow patient will be stable enough, will discharge home. Out of bed. Physical therapy. We will follow up. Lulu Vera MD cc: [id number] TT: 12/14/2016 00:00:43 Confirmation # [id number] Dictation # [id number] MTDD
[2016-12-14 08:07] VITALS: BP 157/97; PULSE 62; TEMP 97.9; O2SAT 97
--- NOTE | 2016-12-14 10:31 | CP.PCM.PN ---
Subjective - Date & Time of Evaluation Date of Evaluation: 12/14/16 Time of Evaluation: 10:31 - Subjective Subjective: alert, awake , NAD. Objective - Vital Signs/Intake and Output Vital Signs (last 24 hours): Temp Pulse Resp BP Pulse Ox 97.9 F 62 20 157/97 H 97 12/14/16 08:04 12/14/16 08:04 12/14/16 08:04 12/14/16 08:04 12/14/16 08:04 Intake and Output: 12/14/16 12/14/16 06:59 18:59 Intake Total 955 Balance 955 - Medications Medications: Current Medications Aspirin (Ecotrin) 81 mg PO DAILY [facility] Last Admin: 12/13/16 09:13 Dose: 81 mg Metoprolol Tartrate (Lopressor) 50 mg PO BID [facility] Last Admin: 12/13/16 17:19 Dose: 50 mg Pantoprazole Sodium (Protonix Inj) 40 mg IVP DAILY [facility] Last Admin: 12/13/16 09:14 Dose: 40 mg Rosuvastatin Calcium (Crestor) 10 mg PO HS [facility] Last Admin: 12/13/16 21:33 Dose: 10 mg - Labs Labs: PT 11.5 SECONDS (9.7-12.2) 12/11/16 00:46 INR 1.0 12/11/16 00:46 APTT 28 SECONDS (21-34) 12/11/16 00:46 Assessment and Plan - Assessment and Plan (Free Text) Assessment: Patient is seen and examined. Alert, oriented, no abdominal pain, tolerating food. Discharged home as per DR Vera, and advised to follow up in the office in 1 week.
--- NOTE | 2016-12-27 08:20 | DS ---
CHIEF COMPLAINT: Abdominal pain. HISTORY OF PRESENT ILLNESS: The patient is a 61-year-old male with past medical history of hypertension, hypercholesterolemia, came to the Emergency Room with abdominal pain. The patient states that pain is sharp and stabbing. The patient denies fevers, chills, nausea, vomiting, diarrhea. Does not look like toxic. Pain scale 3/10. We admitted the patient. Did CAT scan of abdomen and pelvis, MRI of lumbar spine, and of of thoracic region. Seen by Dr. Jerman Fung (surgeon), GI/Dr. Carroll Saul. The patient got better, discharged by Emily Jimenez, nurse practitioner. PAST MEDICAL HISTORY: Hypertension, hypercholesterolemia. FAMILY HISTORY: Coronary artery disease. HABITS: No smoking. Alcohol: Yes, occasionally. Substance abuse: No. ALLERGIES: The patient is not allergic with any medications. HOME MEDICATIONS: Reviewed by me. PHYSICAL EXAMINATION: VITAL SIGNS: Temperature 97.9, pulse 62, blood pressure 157/97, respiratory rate 20. HEENT: Head is normocephalic, atraumatic. Eyes: PERRLA. Extraocular movements intact. Conjunctivae are clear. Nose patent. Mucous membranes moist. NECK: Supple. No carotid bruit. No JVD or thyromegaly. CHEST: Bilaterally symmetrical. HEART: S1, S2 positive. LUNGS: Clear to auscultation. ABDOMEN: Soft. Bowel sounds present. No organomegaly. EXTREMITIES: No edema, no cyanosis. NEUROLOGIC: The patient is awake, alert. Moving all 4 extremities. No focal deficit. LABORATORY DATA: White blood cells 8.6, hemoglobin 15.9, hematocrit 47.2, and platelets 193. Sodium 139, potassium 4.8, BUN 21, creatinine 1.3, and glucose 126. ASSESSMENT AND PLAN: The patient is a 61-year-old male with hyperglycemia, proteinuria, ketonuria, came with abdominal pain. Seen by GI and surgical team. Has a partially bowel obstruction, resolved. The patient is having bowel movements. Advance diet as tolerated. Cleared for discharge by the surgeon and real estate development manager. The patient went for the thoracic region. It showed 3 bony lesions in the T9, T11, T12 with spinal degeneration suggestive but nonspecific for hemangioma. Followup for reassessment after 3 months. Explained to the patient, the patient understands, will do follow up. No evidence of destructive bone lesion. No evidence of spinal or neural foraminal narrowing. MRI spine was done without stenosis, abdominal MRI done, reviewed by me. The patient tolerated food very well. Continue Crestor for hypercholesterolemia. Discontinue the Dilaudid. was given in the hospital for pain. Protonix given. The patient is discharged by Emily Jimenez. The patient is alert, oriented. No abdominal pain. Tolerated food. Discharge home. Advised to follow up in Dr. Vera's office in 1 week. Prescription of medications given. Lulu Vera MD cc: [id number] TT: 12/27/2016 08:00:09 [email or web address] DONOVAN
== END 2016-12-14 14:20 | disposition home or self-care (01) | DRG 181 ==
LOC: C.ER 22:31 → C.3T 12-11 03:30
PROVIDERS: ADMIT Internal Medicine; ATTEND Internal Medicine
DX: K56.5 Intestinal adhesions [bands] with obstruction (postinfection) (principal); I10 Essential (primary) hypertension; E78.00 Pure hypercholesterolemia, unspecified; Z95.5 Presence of coronary angioplasty implant and graft; I25.10 Atherosclerotic heart disease of native coronary artery without angina pectoris